=== PATIENT | female | born 1960 | race Caucasian/White ===

== ENCOUNTER 2017-06-21 03:05 | Observation (INO) | payer MEDICAID ==
[2017-06-21] MEDS ORDERED: PANTOPRAZOLE SODIUM 80 MG in NS 100 ML IV ONE (03:30)
[2017-06-21] MEDS ORDERED: ONDANSETRON 4 MG/2 ML VIAL IVP ONE (03:30)
[2017-06-21] MEDS ORDERED: ONDANSETRON 4 MG/2 ML VIAL ONE (03:30)
--- NOTE | 2017-06-21 03:31 | EDPHY ---
H & P Stated Complaint: abd pain and black stool Time Seen by Provider: 06/21/17 03:15 HPI/ROS: Chief Complaint: Abdominal pain, vomiting, black stools HPI: 56-year-old woman history of a CVA seizure disorder, not on anticoagulation has been having vomiting abdominal pain and diarrhea for the last 2 days. The vomiting initially began as bilious, but since returned very dark "like oil". Patient also has been having loose dark black diarrhea for the last 2 days as well. Describing a burning abdominal pain in the upper left abdomen. Does not have a history of similar pain in the past. Does not take nonsteroidal anti inflammatory medications because they upset her stomach. Denies any recent illnesses. Has been compliant with her medications, last seizure was in February. No fevers or chills. No chest pain or shortness of breath. ROS: 10 point Review of Systems is negative except as noted in the HPI. PMH: CVA, seizure disorder Medications: Zoloft, acyclovir, gabapentin Allergies: Sulfa Social History: Positive smoking, occasional alcohol, occasional marijuana Family History: non-contributory Physical Exam: Gen: Awake, Alert, No Distress HEENT: Nose: no rhinorrhea Eyes: PERRLA, EOMI Mouth: Moist mucosa Neck: Supple, no JVD Chest: nontender, lungs clear to auscultation Heart: S1, S2 normal, no murmur Abd: Soft, she has epigastric tenderness to palpation with mild guarding Rectal: Rectal vault is empty the, there is very scant brown stool Back: no CVA tenderness, no midline tenderness Ext: no edema, non-tender Skin: no rash Neuro: CN II-XII intact, Sensation grossly intact, Strength 5/5 in bilateral upper and lower extremities - Personal History Current Tetanus/Diphtheria Vaccine: Yes Current Tetanus Diphtheria and Acellular Pertussis (TDAP): Yes Tetanus Vaccine Date: - Medical/Surgical History Hx Asthma: No Hx Chronic Respiratory Disease: No Hx Diabetes: No Hx Cardiac Disease: Yes Hx Renal Disease: No Hx Cirrhosis: No Hx Alcoholism: No Hx HIV/AIDS: No Hx Splenectomy or Spleen Trauma: No Other PMH: pmh- Seizures 2/2 CVA in 07/18, Intestional issues, htn, salazar, depression, chronic pain L foot, pna. psh- adnoids, CA of the eyelid-removal. RIGHT WRIST SURGERY - Social History Smoking Status: Current some day smoker Constitutional: Initial Vital Signs Temperature (C) 37 C 06/21/17 03:09 Heart Rate 98 06/21/17 03:09 Respiratory Rate 18 06/21/17 03:09 Blood Pressure 171/119 H 06/21/17 03:09 O2 Sat (%) 86 L 06/21/17 03:09 O2 Delivery Mode Room Air Allergies/Adverse Reactions: Sulfa (Sulfonamide Antibiotics) [Sulfa(Sulfonamide Antibiotics)] Allergy ( Verified 08/04/14 09:36) Home Medications: Medication Instructions Recorded Acyclovir [Zovirax 400 mg (*)] 400 mg PO DAILY 05/25/14 Fluticasone Nasal [Flonase Nasal 2 sprays NASAL DAILY 05/25/14 [place]] Sertraline HCl [Zoloft 100mg (*)] 150 mg PO DAILY 05/25/14 Gabapentin [Neurontin 300 MG (*)] 600 mg PO BID 08/04/14 Aspirin [Aspirin 81mg (*)] 07/13/16 traZODone [traZODONE 50MG (*)] 07/13/16 Medical Decision Making - Diagnostics Imaging Results: CT scan of the head and cervical spine are negative per Dr. King. ED Course/Re-evaluation: 56-year-old woman presenting with an excellent story of upper GI bleeding secondary to a gastric ulcer. She has tenderness on examination. She has been describing melena. Does not have melena here, I am awaiting Hemoccult results. Interestingly she is hemoconcentrated. She has not have an elevation in her BUN either. Bilirubin is mildly elevated. Given her symptomatology and her history is concerning that she has an upper GI bleed. I have discussed with Dr. Tracey, hospitalist. Patient will be admitted to the medical floor for further evaluation. He will request a GI consult later this morning. - Data Points Laboratory Results: Laboratory Results 06/21/17 03:20 06/21/17 03:20 06/21/17 06/21/17 03:20 03:20 WBC 14.88 10^3/uL H 10^3/uL (3.80-9.50) RBC 5.59 10^6/uL H 10^6/uL (4.18-5.33) Hgb 19.2 g/dL H g/dL (12.6-16.3) Hct 53.2 % H % (38.0-47.0) MCV 95.2 fL fL (81.5-99.8) MCH 34.3 pg H pg (27.9-34.1) MCHC 36.1 g/dL g/dL (32.4-36.7) RDW 12.6 % % (11.5-15.2) Plt Count 285 10^3/uL 10^3/uL (150-400) MPV 10.1 fL fL (8.7-11.7) Neut % (Auto) 79.8 % H % (39.3-74.2) Lymph % (Auto) 11.4 % L % (15.0-45.0) Rhea % (Auto) 8.3 % % (4.5-13.0) Eos % (Auto) 0.0 % L % (0.6-7.6) Baso % (Auto) 0.2 % L % (0.3-1.7) Nucleat RBC Rel Count 0.0 % % (0.0-0.2) Absolute Neuts (auto) 11.88 10^3/uL H 10^3/uL (1.70-6.50) Absolute Lymphs (auto) 1.69 10^3/uL 10^3/uL (1.00-3.00) Absolute Monos (auto) 1.24 10^3/uL H 10^3/uL (0.30-0.80) Absolute Eos (auto) 0.00 10^3/uL L 10^3/uL (0.03-0.40) Absolute Basos (auto) 0.03 10^3/uL 10^3/uL (0.02-0.10) Absolute Nucleated RBC 0.00 10^3/uL 10^3/uL (0-0.01) Immature Gran % 0.3 % % (0.0-1.1) Immature Gran # 0.04 10^3/uL 10^3/uL (0.00-0.10) Sodium 138 mEq/L mEq/L (134-144) Potassium 3.2 mEq/L L mEq/L (3.5-5.2) Chloride 99 mEq/L mEq/L (97-110) Carbon Dioxide 20 mEq/l L mEq/l (22-31) Anion Gap 19 mEq/L H mEq/L (8-16) BUN 12 mg/dL mg/dL (7-23) Creatinine 0.6 mg/dL mg/dL (0.6-1.0) Estimated GFR > 60 Glucose 159 mg/dL H mg/dL (70-100) Calcium 10.5 mg/dL H mg/dL (8.5-10.4) Total Bilirubin 1.6 mg/dL H mg/dL (0.1-1.4) Conjugated Bilirubin 0.4 mg/dL mg/dL (0.0-0.5) Unconjugated Bilirubin 1.2 mg/dL H mg/dL (0.0-1.1) AST 37 IU/L IU/L (14-46) ALT 34 IU/L IU/L (9-52) Alkaline Phosphatase 86 IU/L IU/L (38-126) Total Protein 8.1 g/dL g/dL (6.3-8.2) Albumin 5.2 g/dL H g/dL (3.5-5.0) Lipase 308 IU/L H IU/L (23-300) Medications Given: Discontinued Medications Pantoprazole Sodium 80 mg/ (Sodium Chloride) 100 mls @ 200 mls/hr IV ONCE ONE Stop: 06/21/17 03:59 Last Admin: 06/21/17 04:01 Dose: 100 mls Sodium Chloride (Ns) 1,000 mls @ 0 mls/hr IV ONCE ONE PRN Reason: Wide Open Stop: 06/21/17 03:38 Last Admin: 06/21/17 03:40 Dose: 1,000 mls Ondansetron HCl (Zofran) 4 mg IVP EDNOW ONE Stop: 06/21/17 03:31 Last Admin: 06/21/17 03:32 Dose: 4 mg Departure - Departure Disposition: [facility] Inpatient Acute Clinical Impression: Upper GI bleed Condition: Fair Referrals: Lul Oseguera MD [Primary Care Provider] - As per Instructions
[2017-06-21] MEDS ORDERED: NS 1,000 ML IV ONE ×2 (03:37→04:26)
[2017-06-21 03:40] LABS: % IMMATURE GRANULYOCYTES 0.3 % (0.0-1.1); ABSOLUTE IMMATURE GRANULOCYTES 0.04 10^3/uL (0.00-0.10); ADD DIFF? NO; ADD MORPH? NO; ADD SCAN? NO; ATYPICAL LYMPHOCYTE FLAG 0 (0-99); FRAGMENT RBC FLAG 0 (0-99); HEMATOCRIT 53.2 % (38.0-47.0); HEMOGLOBIN 19.2 g/dL (12.6-16.3); LEFT SHIFT FLG 0 (0-99); LIPEMIA HEMOLYSIS FLAG 90 (0-99); MEAN CELL HEMOGLOBIN 34.3 pg (27.9-34.1); MEAN CELL HEMOGLOBIN CONCENTR. 36.1 g/dL (32.4-36.7); MEAN CELL VOLUME 95.2 fL (81.5-99.8); MEAN PLATELET VOLUME 10.1 fL (8.7-11.7); PLATELET CLUMPS FLAG 0 (0-99); PLATELET COUNT 285 10^3/uL (150-400); RED BLOOD CELL COUNT 5.59 10^6/uL (4.18-5.33); RED CELL DISTRIBUTION WIDTH 12.6 % (11.5-15.2)
[2017-06-21 03:58] LABS: ALANINE AMINOTRANSFERASE 34 IU/L (9-52); ALBUMIN 5.2 g/dL (3.5-5.0); ALKALINE PHOSPHATASE 86 IU/L (38-126); ANION GAP 19 mEq/L (8-16); ASPARTATE AMINOTRANSFERASE 37 IU/L (14-46); BILIRUBIN,TOTAL 1.6 mg/dL (0.1-1.4); BILIRUBIN-CONJUGATED 0.4 mg/dL (0.0-0.5); BILIRUBIN-UNCONJUGATED 1.2 mg/dL (0.0-1.1); CALCIUM 10.5 mg/dL (8.5-10.4); CARBON DIOXIDE 20 mEq/l (22-31); CHLORIDE 99 mEq/L (97-110); CREATININE 0.6 mg/dL (0.6-1.0); GLOMERULAR FILTRATION RATE > 60; GLUCOSE 159 mg/dL (70-100); POTASSIUM 3.2 mEq/L (3.5-5.2); SODIUM 138 mEq/L (134-144); TOTAL PROTEIN 8.1 g/dL (6.3-8.2)
[2017-06-21] MEDS ORDERED: ACETAMINOPHEN 325 MG TAB PO PRN (04:26)
[2017-06-21] MEDS ORDERED: ONDANSETRON 4 MG/2 ML VIAL IVP PRN ×2 (04:26→15:43)
--- NOTE | 2017-06-21 04:35 | PDGENHP ---
History and Physical - Chief Complaint Abdominal pain - History of Present Illness 56 yo F w/ hx of CVA, seizure d/o, and depression presents with severe abdominal pain and black stools. Patient reports fairly acute onset of severe abdominal pain on Sunday of this week; she denies any symptoms prior to this. She began to experience severe epi-gastric abdominal pain. Shortly after, she began to have nausea and vomiting. She described both her vomit and ensuing stools as black and possibly with some blood. She denies prior hx of gastrointestinal bleeding. She admits to drinking 4 oz of vodka almost daily, although I suspect her intake may be more than this. She also smokes one pack of cigarettes daily an drinks several cups of coffee. She does not use NSAIDs regularly. History Information - Allergies/Home Medication List Allergies/Adverse Reactions: Sulfa (Sulfonamide Antibiotics) [Sulfa(Sulfonamide Antibiotics)] Allergy ( Verified 08/04/14 09:36) Home Medications: Acyclovir [Zovirax 400 mg (*)] 400 mg PO DAILY 05/25/14 [Last Taken 08/03/14] Fluticasone Nasal [Flonase Nasal [place]] 2 sprays NASAL DAILY 05/25/14 [Last Taken 08/03/14] Sertraline HCl [Zoloft 100mg (*)] 150 mg PO DAILY 05/25/14 [Last Taken 08/03/14] Gabapentin [Neurontin 300 MG (*)] 600 mg PO BID 08/04/14 [Last Taken 08/04/14 09 :00] Aspirin [Aspirin 81mg (*)] 07/13/16 [Last Taken Unknown] traZODone [traZODONE 50MG (*)] 07/13/16 [Last Taken Unknown] I have personally reviewed and updated: family history, medical history - Past Medical History CVA, seizures - Family History Additional family history: Denies family hx of GI disease. States father had filariasis - Social History Smoking Status: Heavy smoker Alcohol Use: Heavy Drug Use: None Review of Systems ROS: 10pt was reviewed & negative except for what was stated in HPI & below Physical Exam Temp Pulse Resp BP Pulse Ox 37 C 98 18 171/119 H 86 L 06/21/17 03:09 06/21/17 03:09 06/21/17 03:09 06/21/17 03:09 06/21/17 03:09 Constitutional: chronically ill appearing, uncomfortable Eyes: PERRL, EOMI Ears, Nose, Mouth, Throat: moist mucous membranes, no oral mucosal ulcers Cardiovascular: regular rate and rhythym, no murmur, rub, or gallop Respiratory: no respiratory distress, clear to auscultation Gastrointestinal: normoactive bowel sounds, tenderness (Epi-gastric, exquisite) , guarding, No rebound Skin: warm, no rashes or abrasions Musculoskeletal: full muscle strength, no muscle tenderness Neurologic: AAOx3, CN II-XII Intact Psychiatric: interacting appropriately, not anxious Lab Data & Imaging Review 06/21/17 03:20 06/21/17 03:20 WBC 14.88 10^3/uL (3.80-9.50) H 06/21/17 03:20 RBC 5.59 10^6/uL (4.18-5.33) H 06/21/17 03:20 Hgb 19.2 g/dL (12.6-16.3) H 06/21/17 03:20 Hct 53.2 % (38.0-47.0) H 06/21/17 03:20 MCV 95.2 fL (81.5-99.8) 06/21/17 03:20 MCH 34.3 pg (27.9-34.1) H 06/21/17 03:20 MCHC 36.1 g/dL (32.4-36.7) 06/21/17 03:20 RDW 12.6 % (11.5-15.2) 06/21/17 03:20 Plt Count 285 10^3/uL (150-400) 06/21/17 03:20 MPV 10.1 fL (8.7-11.7) 06/21/17 03:20 Neut % (Auto) 79.8 % (39.3-74.2) H 06/21/17 03:20 Lymph % (Auto) 11.4 % (15.0-45.0) L 06/21/17 03:20 [place] % (Auto) 8.3 % (4.5-13.0) 06/21/17 03:20 Eos % (Auto) 0.0 % (0.6-7.6) L 06/21/17 03:20 Baso % (Auto) 0.2 % (0.3-1.7) L 06/21/17 03:20 Nucleat RBC Rel Count 0.0 % (0.0-0.2) 06/21/17 03:20 Absolute Neuts (auto) 11.88 10^3/uL (1.70-6.50) H 06/21/17 03:20 Absolute Lymphs (auto) 1.69 10^3/uL (1.00-3.00) 06/21/17 03:20 Absolute Monos (auto) 1.24 10^3/uL (0.30-0.80) H 06/21/17 03:20 Absolute Eos (auto) 0.00 10^3/uL (0.03-0.40) L 06/21/17 03:20 Absolute Basos (auto) 0.03 10^3/uL (0.02-0.10) 06/21/17 03:20 Absolute Nucleated RBC 0.00 10^3/uL (0-0.01) 06/21/17 03:20 Immature Gran % 0.3 % (0.0-1.1) 06/21/17 03:20 Immature Gran # 0.04 10^3/uL (0.00-0.10) 06/21/17 03:20 Sodium 138 mEq/L (134-144) 06/21/17 03:20 Potassium 3.2 mEq/L (3.5-5.2) L 06/21/17 03:20 Chloride 99 mEq/L (97-110) 06/21/17 03:20 Carbon Dioxide 20 mEq/l (22-31) L 06/21/17 03:20 Anion Gap 19 mEq/L (8-16) H 06/21/17 03:20 BUN 12 mg/dL (7-23) 06/21/17 03:20 Creatinine 0.6 mg/dL (0.6-1.0) 06/21/17 03:20 Estimated GFR > 60 06/21/17 03:20 Glucose 159 mg/dL (70-100) H 06/21/17 03:20 Calcium 10.5 mg/dL (8.5-10.4) H 06/21/17 03:20 Total Bilirubin 1.6 mg/dL (0.1-1.4) H 06/21/17 03:20 Conjugated Bilirubin 0.4 mg/dL (0.0-0.5) 06/21/17 03:20 Unconjugated Bilirubin 1.2 mg/dL (0.0-1.1) H 06/21/17 03:20 AST 37 IU/L (14-46) 06/21/17 03:20 ALT 34 IU/L (9-52) 06/21/17 03:20 Alkaline Phosphatase 86 IU/L (38-126) 06/21/17 03:20 Total Protein 8.1 g/dL (6.3-8.2) 06/21/17 03:20 Albumin 5.2 g/dL (3.5-5.0) H 06/21/17 03:20 Lipase 308 IU/L (23-300) H 06/21/17 03:20 Assessment & Plan Assessment: 56 yo F w/ hx CVA, seizure d/o, and depression presenting with symptoms of UGIB. Plan: 1. UGIB - Presenting with severe abdominal pain, vomiting, and melena in the setting of daily ETOH use and heavy tobacco use. I suspect patient may be drinking more than stated (she admits to 4 oz vodka daily) and abdominal pain likely represents alcoholic gastritis. Hemoconcentrated on admission with Hgb of 19 and hemodynamically stable. - IVF, trend Hgb - expect significant drop as hemoconcentration reverses - IV PPI BID - GI consult for EGD - Maintain NPO 2. Abdominal pain - As noted above, suspect alcoholic gastritis. Tender on exam but soft without rebound. - Oxy, hydromorphone PRN - IV PPI - Will obtain CT if clinically worsens or exam becomes concerning 3. ETOH abuse - Patient admits to 4 oz vodka daily, I suspect use may be higher than this. She denies prior hx of ETOH w/d 4. Hypokalemia - In the setting of poor PO intake and vomiting. Replete 5. Hx of CVA - Patient states she has subtle L eye vision decrease and L leg weakness related to this. 6. Seizure d/o - Last seizure in February, per patient. Takes gabapentin 600 mg PO BID. 7. Depression - On sertraline as an outpatient Diet - NPO Code - Full Ppx - SCDs Dispo - Admit to observation
[2017-06-21] MEDS: NS W/ 20 KCl/L 1,000 ML IV SCH ×2 (05:23→17:53)
[2017-06-21] MEDS: oxyCODONE IR 5 MG TAB PO PRN ×5 (05:23→20:04)
[2017-06-21] MEDS: ONDANSETRON DISINTEGRATING 4 MG TAB PO PRN (05:43)
[2017-06-21] MEDS: HYDROmorphONE/DILAUDID 1 MG/ML SYR IVP PRN ×5 (06:36→20:03)
[2017-06-21 09:21] LABS: % IMMATURE GRANULYOCYTES 0.4 % (0.0-1.1); ABSOLUTE IMMATURE GRANULOCYTES 0.05 10^3/uL (0.00-0.10); ADD DIFF? NO; ADD MORPH? NO; ADD SCAN? NO; ATYPICAL LYMPHOCYTE FLAG 0 (0-99); FRAGMENT RBC FLAG 0 (0-99); HEMOGLOBIN 16.6 g/dL (12.6-16.3); LEFT SHIFT FLG 0 (0-99); LIPEMIA HEMOLYSIS FLAG 90 (0-99); MEAN CELL HEMOGLOBIN 34.7 pg (27.9-34.1); MEAN CELL HEMOGLOBIN CONCENTR. 36.1 g/dL (32.4-36.7); MEAN CELL VOLUME 96.2 fL (81.5-99.8); MEAN PLATELET VOLUME 9.7 fL (8.7-11.7); PLATELET CLUMPS FLAG 0 (0-99); PLATELET COUNT 233 10^3/uL (150-400); RED BLOOD CELL COUNT 4.78 10^6/uL (4.18-5.33); RED CELL DISTRIBUTION WIDTH 12.6 % (11.5-15.2)
[2017-06-21 09:50] LABS: ALANINE AMINOTRANSFERASE 29 IU/L (9-52); ALKALINE PHOSPHATASE 64 IU/L (38-126); ANION GAP 12 mEq/L (8-16); ASPARTATE AMINOTRANSFERASE 29 IU/L (14-46); BILIRUBIN,TOTAL 1.2 mg/dL (0.1-1.4); CALCIUM 8.7 mg/dL (8.5-10.4); CARBON DIOXIDE 21 mEq/l (22-31); CHLORIDE 104 mEq/L (97-110); CREATININE 0.5 mg/dL (0.6-1.0); GLOMERULAR FILTRATION RATE > 60; GLUCOSE 114 mg/dL (70-100); MAGNESIUM 1.5 mg/dL (1.6-2.3); POTASSIUM 3.1 mEq/L (3.5-5.2); SODIUM 137 mEq/L (134-144); TOTAL PROTEIN 6.2 g/dL (6.3-8.2)
--- NOTE | 2017-06-21 10:49 | HOSPPROG ---
Hospitalist Progress Note Assessment/Plan: 56 yp F w heavy etoh and tobacco here w melena and hematemesis bid iv ppi gi to scope nicotine patch Subjective: nor further bleeding Objective: Vital Signs Temp Pulse Resp BP Pulse Ox 37.3 C 68 16 135/78 H 96 06/21/17 07:14 06/21/17 07:14 06/21/17 07:14 06/21/17 07:14 06/21/17 07:14 Laboratory Results 06/21/17 09:05 06/21/17 09:05 06/20/17 06/21/17 06/22/17 05:59 05:59 05:59 Intake Total 1200 Output Total 200 Balance 1200 -200 ICD10 Worksheet Patient Problems: Problems Problem Status Onset Upper GI bleed Acute Pneumonia Acute Macrocytosis, red cells Chronic
[2017-06-21] MEDS: NICOTINE 21 MG/24 HR PATCH TD SCH (12:14)
[2017-06-21 13:08] LABS: HEMATOCRIT 44.5 % (38.0-47.0)
[2017-06-21] MEDS ORDERED: LR 1,000 ML IV ONE (14:55)
--- NOTE | 2017-06-21 15:29 | PDANEPAE ---
ANE History of Present Illness Patient presents for EGD ANE Past Medical History - Pulmonary History Hx Oxygen in Use at Home: No Hx Sleep Apnea: No Sleep Apnea Screening Result - Last Documented: Negative - Endocrine History Hx Diabetes: No - Neurological & Psychiatric Hx Neurological / Psychiatric History Comment: CVA - Chronic Pain History Chronic Pain: Yes ANE Review of Systems - Exercise capacity Exercise capacity: limited by disability ANE Patient History - Allergies Allergies/Adverse Reactions: Sulfa (Sulfonamide Antibiotics) [Sulfa(Sulfonamide Antibiotics)] Allergy ( Verified 08/04/14 09:36) - Home Medications Home medications: home medication list seen and reviewed Home Medications: Acyclovir [Zovirax 400 mg (*)] 400 mg PO DAILY 05/25/14 [Last Taken 06/20/17] Fluticasone Nasal [Flonase Nasal [place]] 2 sprays NASAL DAILY 05/25/14 [Last Taken 06/20/17] Sertraline HCl [Zoloft 100mg (*)] 150 mg PO DAILY 05/25/14 [Last Taken 06/20/17] Gabapentin [Neurontin 300 MG (*)] 600 mg PO BID 08/04/14 [Last Taken 06/20/17 09 :00] traZODone [traZODONE 100MG (*)] 100 mg PO HS 06/21/17 [Last Taken 06/20/17] - NPO status NPO Status: no food or drink >8 hours NPO Since - Liquids (Date): 06/21/17 NPO Since - Liquids (Time): 05:00 NPO Since - Solids (Date): 06/18/17 NPO Since - Solids (Time): 18:00 - Anes Hx Anes Hx: no prior problems - Smoking Hx Smoking Status: Heavy smoker - Alcohol Use Alcohol Use: Heavy ANE Labs/Vital Signs - Labs Result Diagrams: 06/21/17 12:52 06/21/17 09:05 - Vital Signs Blood Pressure: 103/64 Heart Rate: 66 Respiratory Rate: 16 O2 Sat (%): 95 Height: 170.18 cm Weight: 49.895 kg ANE Physical Exam - Airway Neck exam: FROM Mallampati Score: Class 1 - Pulmonary Pulmonary: no respiratory distress - Cardiovascular Cardiovascular: regular rate and rhythym - ASA Status ASA Status: III ANE Anesthesia Plan Anesthesia Plan: general endotracheal anesthesia (RBA discussed, patient agrees to proceed)
[2017-06-21] MEDS ORDERED: fentaNYL 100 MCG/2 ML INJ ONE (15:32)
[2017-06-21] MEDS ORDERED: PROPOFOL/EMULSION 500 MG/50 ML BOTTLE IV ONE (15:32)
[2017-06-21] MEDS ORDERED: NALOXONE HCL 0.4 MG/ML INJ IVP PRN (15:43)
--- NOTE | 2017-06-21 15:49 | SOAPPROG ---
SOAP Progress Note Assessment/Plan: Assessment: Plan: 06/21/17 15:46 GI note S/p EGD with Bx. Please see dictated note for details. + gastritis. Bx taken of stomach and for sprue. No cause of pain or melenic stools noted. Recommend to increase PPI to BID and add Carafate. Ok to start diet later. If tolerates, can d/c soon? Needs colonoscopy and can consider doing this as an outpatient. EBL:Minimal Meds: Propofol. Objective: Vital Signs Temp Pulse Resp BP Pulse Ox 37.4 C 66 16 103/64 95 06/21/17 14:46 06/21/17 15:29 06/21/17 15:29 06/21/17 15:29 06/21/17 15:29 Laboratory Results 06/21/17 12:52 06/21/17 09:05 06/20/17 06/21/17 06/22/17 05:59 05:59 05:59 Intake Total 1200 Output Total 200 Balance 1200 -200 ICD10 Worksheet Patient Problems: Problems Problem Status Onset Macrocytosis, red cells Chronic Pneumonia Acute Upper GI bleed Acute
--- NOTE | 2017-06-21 15:57 | POSTANESTH ---
Post Anesthetic Evaluation Cardiovascular Status: Normal, Stable Respiratory Status: Normal, Stable Level of Consciousness/Mental Status: Can Participate in Eval Pain Control: Adequate, Prn Tx Ordered Nausea/Vomiting Control: Adequate, Prn Tx Ordered Complications Possibly Related to Anesthesia: None Noted
--- NOTE | 2017-06-21 16:13 | GCON ---
[f rep st] CONSULTATION DATE OF CONSULTATION: 06/21/2017 REFERRING PHYSICIAN: Anselmo Mccoy MD REASON FOR CONSULTATION: Melanotic stools. CHIEF COMPLAINT: Melanotic stools. HISTORY OF PRESENT ILLNESS: The patient is a 56-year-old female, with a history of cerebrovascular accident, seizure disorder, depression, alcohol use, erosive esophagitis, who presents to [facility] with episodes of melanotic stools, abdominal pain, nausea and vomiting. The patient, who has had chronic symptoms of nausea, vomiting for multiple years, states that she was doing well until approximately 4 days ago when she vomited. There was some blood in her vomitus. Since then, she has been having approximately 3-4 bowel movements each day, which she describes as being black and tarry. She also complains of the pain in her mid epigastrium as well as the left quadrants of her abdomen. She describes the pain as being sharp at times and worsened with movement. She denies any alleviating factors, She denies any dysphagia, odynophagia, or heartburn. I am being asked by Dr. Mccoy to evaluate the patient in consultation regarding her black, tarry stools. PAST MEDICAL HISTORY: 1. Alcohol use. 2. Erosive esophagitis. 3. Depression. 4. Narcotic use secondary to chronic pain syndrome. 5. Seizure disorder. PAST SURGICAL HISTORY: Wrist surgery. Adenoidectomy. Basal cell cancer removal from the face. ALLERGIES: Sulfa. MEDICATIONS: Acyclovir, fluticasone, sertraline, gabapentin, aspirin, trazodone. SOCIAL HISTORY: Positive cigarette and alcohol use. Positive marijuana use. FAMILY HISTORY: Lung cancer. REVIEW OF SYSTEMS: A 14-point comprehensive review of systems asked. Pertinent positives and negatives as per HPI. PHYSICAL EXAMINATION: VITAL SIGNS: Blood pressure 103/64, pulse 66, respirations 16, temperature 37.4. GENERAL: Awake, alert, oriented x3, in no distress. HEENT: Anicteric sclerae. Moist mucosa. NECK: No JVD. CARDIOVASCULAR: Regular rate and rhythm. Positive S1, S2. No murmurs or gallops appreciated. LUNGS: Clear to auscultation bilateral. ABDOMEN: Soft, tender in the mid epigastrium as well as left upper quadrant. No guarding. No rebound. EXTREMITIES: No clubbing, cyanosis or edema. NEUROLOGIC: Cranial nerves 2 through 12 grossly intact. PSYCH: Normal affect. MUSCULOSKELETAL: No obvious joint deformities. LYMPH: No lymphadenopathy. LABORATORY: WBC is 12.1, hemoglobin 16.6, hematocrit 46, platelets 233. Sodium 137, potassium 3.1, chloride 104, bicarb 21, BUN 10, creatinine 0.5, total bilirubin 1.2, AST 29, ALT 29, alkaline phosphatase 64, lipase 308. ASSESSMENT AND PLAN: 1. Black melanotic stools,-with left upper quadrant abdominal pain. Significant alcohol use. I recommend to proceed with upper endoscopy to delineate the cause of her symptoms. The risks, benefits, and alternatives of the procedure were discussed in great detail with the patient. The risks of infection, bleeding, perforation, and sedation were discussed. Due to her chronic pain syndrome as well as significant alcohol use , she is at increased risk of sedation. We will ask for Anesthesiology support during the procedure. 2. History of cerebrovascular accident. 3. History of seizure disorder. 4. History of alcohol use. Thank you very much for this consultation. /[id number]/MODL MTDD
--- NOTE | 2017-06-21 16:23 | GPN ---
[f rep st] PROCEDURE NOTE DATE OF PROCEDURE: 06/21/2017 PROCEDURE: Esophagogastroduodenoscopy with biopsy. INDICATION: The patient is a 56-year-old female, who presents for evaluation of mid epigastric/left upper quadrant abdominal pain as well as melanotic stools. She presents for further evaluation. CONSENT: Risks, benefits, and alternatives of the procedure were discussed in detail with the patient. Risks of infection, bleeding, perforation, and sedation were discussed. All questions answered. Informed consent was obtained. MEDICATIONS: Propofol. Please see Anesthesiology for details. ESTIMATED BLOOD LOSS: Insignificant. ESOPHAGOGASTRODUODENOSCOPY EXAMINATION: An Olympus upper endoscope was inserted into the mouth and advanced to the esophagus. The proximal, mid, and distal esophagus were normal in appearance. The stomach was entered and closely examined, including retroflexed views of the angularis, cardia, and fundus. The mucosa of the whole examined stomach was erythematous and biopsies were taken. On retroflexion, she was noted to have a moderate-sized hiatal hernia. The duodenal bulb and second portion of the duodenum were normal in appearance. Biopsies were taken for celiac sprue. IMPRESSION: 1. Gastritis, status post biopsy. 2. Hiatal hernia. 3. Biopsy taken for celiac sprue. 4. No cause of abdominal pain or melanotic stools noted. RECOMMENDATIONS: 1. Increase PPI dose to twice a day. 2. Add Carafate. 3. Consider outpatient colonoscopy. 4. Await biopsy results. /[id number]/MODL MTDD
[2017-06-21 19:47] VITALS: RESP 16
[2017-06-21] MEDS ORDERED: traZODone 100 MG TAB PO SCH (21:00)
[2017-06-21] MEDS: PANTOPRAZOLE SODIUM 40 MG in NS 100 ML IV SCH (22:20)
[2017-06-21] MEDS: GABAPENTIN 300 MG CAP PO SCH (22:28)
[2017-06-22] MEDS: oxyCODONE IR 5 MG TAB PO PRN ×6 (00:08→15:56)
[2017-06-22] MEDS: ONDANSETRON DISINTEGRATING 4 MG TAB PO PRN (00:47)
[2017-06-22] MEDS: NS W/ 20 KCl/L 1,000 ML IV SCH (04:51)
[2017-06-22] MEDS: GABAPENTIN 300 MG CAP PO SCH (08:07)
[2017-06-22] MEDS: PANTOPRAZOLE SODIUM 40 MG in NS 100 ML IV SCH (08:07)
[2017-06-22] MEDS: NICOTINE 21 MG/24 HR PATCH TD SCH (08:09)
[2017-06-22] MEDS ORDERED: ACYCLOVIR 400 MG TAB PO SCH (09:00)
[2017-06-22] MEDS ORDERED: FLUTICASONE NASAL 120 SPRAYS/16 GM MDI NS SCH (09:00)
[2017-06-22] MEDS ORDERED: SERTRALINE HCL 100 MG TAB PO SCH (09:00)
[2017-06-22] MEDS: HYDROmorphONE/DILAUDID 1 MG/ML SYR IVP PRN (09:22)
[2017-06-22 09:42] LABS: HEMATOCRIT 43.2 % (38.0-47.0); MEAN CELL HEMOGLOBIN 34.1 pg (27.9-34.1); MEAN CELL HEMOGLOBIN CONCENTR. 34.7 g/dL (32.4-36.7); MEAN CELL VOLUME 98.2 fL (81.5-99.8); RED BLOOD CELL COUNT 4.4 10^6/uL (4.18-5.33); RED CELL DISTRIBUTION WIDTH 12.3 % (11.5-15.2)
--- NOTE | 2017-06-22 12:37 | SOAPPROG ---
SOAP Progress Note Assessment/Plan: Assessment: Plan: 06/21/17 15:46 GI note S/p EGD with Bx. Please see dictated note for details. + gastritis. Bx taken of stomach and for sprue. No cause of pain or melenic stools noted. Recommend to increase PPI to BID and add Carafate. Ok to start diet later. If tolerates, can d/c soon? Needs colonoscopy and can consider doing this as an outpatient. EBL:Minimal Meds: Propofol. 06/22/17 12:34 A/P 1. Abdominal pain- with melenic stools. S/p EGD with no ulcer. Abdominal pain improving? Had recent BM which was brown. Recommend conservative care. Component of pain appears to be functional/musculoskeletal. Needs outpatient colonoscopy. GI will sign off. Thank you for the consultation! Subjective: cc: Follow up on melenic stools. Last BM was brown. Objective: Vital Signs Temp Pulse Resp BP Pulse Ox 37.7 C 56 L 16 102/52 L 94 06/22/17 11:21 06/22/17 11:21 06/22/17 11:21 06/22/17 11:21 06/22/17 11:21 Laboratory Results 06/22/17 09:33 06/21/17 09:05 06/21/17 06/22/17 06/23/17 05:59 05:59 05:59 Intake Total 1200 2225 Output Total 1100 500 Balance 1200 1125 -500 Physical Exam - Physical Exam General Appearance: alert, no apparent distress EENT: No scleral icterus (R), No scleral icterus (L) Respiratory: lungs clear, normal breath sounds Cardiac/Chest: regular rate, rhythm Abdomen: non-tender, soft, No distended, No guarding, No rebound Skin: normal color, warm/dry Neuro/Psych: normal mood/affect, oriented x 3, No abnormal car rider II-XII ICD10 Worksheet Patient Problems: Problems Problem Status Onset Upper GI bleed Acute Pneumonia Acute Macrocytosis, red cells Chronic
--- NOTE | 2017-06-22 14:15 | HOSPPROG ---
Hospitalist Progress Note Assessment/Plan: 56 yp F w heavy etoh and tobacco here w melena and hematemesis scope neg hct stable home today see dc summary >30 minutes Subjective: scope neg Objective: Vital Signs Temp Pulse Resp BP Pulse Ox 37.7 C 56 L 16 102/52 L 94 06/22/17 11:21 06/22/17 11:21 06/22/17 11:21 06/22/17 11:21 06/22/17 11:21 Laboratory Results 06/22/17 09:33 06/21/17 09:05 06/21/17 06/22/17 06/23/17 05:59 05:59 05:59 Intake Total 1200 2225 Output Total 1100 500 Balance 1200 1125 -500 - Physical Exam Constitutional: no apparent distress, appears nourished Eyes: PERRL, anicteric sclera Ears, Nose, Mouth, Throat: moist mucous membranes, hearing normal Cardiovascular: regular rate and rhythym, no murmur, rub, or gallop Respiratory: no respiratory distress, no rales or rhonchi Gastrointestinal: normoactive bowel sounds, soft, non-tender abdomen Genitourinary: no bladder fullness, No garcia in urethra Skin: warm, normal color Musculoskeletal: full muscle strength Neurologic: AAOx3 ICD10 Worksheet Patient Problems: Problems Problem Status Onset Upper GI bleed Acute Pneumonia Acute Macrocytosis, red cells Chronic
[2017-06-22 15:26] VITALS: BP 127/67; PULSE 62; TEMP 99.4; O2SAT 97
--- NOTE | 2017-06-22 19:32 | GDS ---
[f rep st] DISCHARGE SUMMARY DISCHARGE DIAGNOSES: 1. Coffee-ground emesis with no evidence of upper gastrointestinal bleed found on scope. 2. Abdominal pain. 3. Tobacco use. HOSPITAL COURSE: Please see admission history and physical by Dr. Anselmo Mccoy. The patien sho presented with epigastric pain as well as melena. She was not anemic with a hemoglobin of 19; it fell to 15 with no further melena, hematemesis, or coffee-ground emesis. She does have heavy alcoho l use and tobacco use. She had LFTs with a modestly elevated bilirubin but otherwise unremarkable. She had an upper scope, which showed no evidence of bleeding, distortion, or pain. Biopsies were t aken. She was transitioned to b.i.d. PPI. She was advised for lifestyle modification, including re duction of alcohol and tobacco cessation. She was given sucralfate. She is discharged home with ou tpatient followup with Valentin Galeana MD. /[id number]/MODL
== END 2017-06-22 16:13 | disposition home or self-care (01) ==
LOC: F3E 05:11
PROVIDERS: ADMIT Student in an Organized Health Care Education/Training Program; ATTEND Student in an Organized Health Care Education/Training Program
PROC: 0DB68ZX Excision of Stomach, Via Natural or Artificial Opening Endoscopic, Diagnostic (ICD-10-PCS; principal; 2017-06-21 15:30)
PROC: 0DB98ZX Excision of Duodenum, Via Natural or Artificial Opening Endoscopic, Diagnostic (ICD-10-PCS; principal; 2017-06-21 15:30)
DX: R11.2 Nausea with vomiting, unspecified (principal); R10.13 Epigastric pain; K29.70 Gastritis, unspecified, without bleeding; K44.9 Diaphragmatic hernia without obstruction or gangrene; F17.200 Nicotine dependence, unspecified, uncomplicated; Z88.2 Allergy status to sulfonamides
CPT/HCPCS: 43239; 96365; 96375; 99285; G0378; J1170; J2405; J2704; J3010